=== PATIENT | male | born 1995 | race Caucasian/White ===

== ENCOUNTER 2018-10-30 01:08 | Emergency (ER) | payer OTHER ==
[2018-10-30 01:39] VITALS: BP 126/72; PULSE 91; TEMP 99; BMI 22.8
[2018-10-30] MEDS ORDERED: ACETAMINOPHEN 325 MG TABLET (FP) PO ONE (01:46)
--- NOTE | 2018-10-30 01:46 | PDOC ---
History of Present Illness - General Chief Complaint: Sore Throat Stated Complaint: SORE THROAT Time Seen by Provider: 10/30/18 01:34 History Source: Patient - History of Present Illness Initial Comments: 10/30/18 02:12 22-year-old male complaining of sore throat and difficulty swallowing for the last 3 days patient reports low-grade fevers at home. No past medical history Past History - Past Medical History Allergies/Adverse Reactions: Allergies Allergy/AdvReac Type Severity Reaction Status Date / Time No Known Allergies Allergy Verified 10/30/18 01:39 Home Medications: Ambulatory Orders Omeprazole [Prilosec] 40 mg PO DAILY 02/19/16 GI Disorders: Yes (gerd) - Immunization History Immunization Up to Date: Yes - Suicide/Smoking/Psychosocial Hx Smoking Status: No Smoking History: Never smoked Have you smoked in the past 12 months: No Number of Cigarettes Smoked Daily: 0 Information on smoking cessation initiated: No Hx Alcohol Use: No Drug/Substance Use Hx: No Review of Systems - Review of Systems Able to Perform ROS?: Yes Is the patient limited [place] proficient: No Constitutional: Yes: Fever HEENTM: Yes: Throat Pain. No: Symptoms Reported, See HPI, Eye Pain, Blurred Vision, Tearing, Recent change in vision, Double Vision, Cataracts, Ear Pain, Ocular Prothesis, Ear Discharge, Nose Pain, Nose Congestion, Tinnitus, Nose Bleeding, Hearing Loss, Throat Swelling, Mouth Pain, Dental Problems, Difficulty Swallowing, Mouth Swelling, Other Respiratory: No: Symptoms reported, See HPI, Cough, Orthopnea, Shortness of Breath, SOB with Exertion, SOB at Rest, Stridor, Wheezing, Productive cough, Hemoptysis, Other Cardiac (ROS): No: Symptoms Reported, See HPI, Chest Pain, Edema, Irregular Heart Rate, Lightheadedness, Palpitations, Syncope, Chest Tightness, Other ABD/GI: No: Symptoms Reported, See HPI, Abdominal Distended, Abd. Pain w/ defecation, Blood Streaked Bowels, Constipated, Diarrhea, Difficulty Swallowing , Nausea, Poor Appetite, Poor Fluid Intake, Rectal Bleeding, Vomiting, Indigestion, Abdominal cramping, Tarry Stools, Other *Physical Exam - Vital Signs Last Vital Signs Temp Pulse Resp BP Pulse Ox 99 F 91 H 19 126/72 100 10/30/18 01:08 10/30/18 01:08 10/30/18 01:08 10/30/18 01:08 10/30/18 01:08 - Physical Exam General Appearance: Yes: Appropriately Dressed HEENT: positive: Tonsillar Exudate, Tonsillar Erythema Neck: positive: Lymphadenopathy (R), Lymphadenopathy (L) Respiratory/Chest: positive: Lungs Clear, Normal Breath Sounds Cardiovascular: positive: Regular Rhythm, Regular Rate Gastrointestinal/Abdominal: positive: Normal Bowel Sounds, Soft Musculoskeletal: positive: Normal Inspection Extremity: positive: Normal Capillary Refill, Normal Inspection, Normal Range of Motion Integumentary: positive: Normal Color, Dry, Warm Neurologic: positive: Fully Oriented, Alert, Normal Mood/Affect Moderate Sedation - Procedure Monitoring Vital Signs: Procedure Monitoring Vital Signs Temperature 99 F 10/30/18 01:08 Pulse Rate 91 H 10/30/18 01:08 Respiratory Rate 19 10/30/18 01:08 Blood Pressure 126/72 10/30/18 01:08 O2 Sat by Pulse Oximetry (%) 100 10/30/18 01:08 Medical Decision Making - Medical Decision Making 10/30/18 02:23 A: strep pharyngitis P: rapid strep *DC/Admit/Observation/Transfer - Discharge Dispostion Disposition: HOME Condition at time of disposition: Improved - Referrals Referrals: Nito Wong [Primary Care Provider] - - Patient Instructions Printed Discharge Instructions: Strep Throat Additional Instructions: gargle with warm salty water you may take ibuprofen every 6 hours for pain - Post Discharge Activity Forms/Work/School Notes: Back to Work
--- NOTE | 2018-10-30 01:46 | PDOC ---
*Physical Exam - Vital Signs Last Vital Signs Temp Pulse Resp BP Pulse Ox 99 F 91 H 19 126/72 100 10/30/18 01:08 10/30/18 01:08 10/30/18 01:08 10/30/18 01:08 10/30/18 01:08 Medical Decision Making - Medical Decision Making 10/30/18 01:46 Patient seen by the advanced practice provider under my direct supervision. Ancillary testing reviewed as necessary. I agree with plan as outlined by the advanced practice provider. *DC/Admit/Observation/Transfer Diagnosis at time of Disposition: Sore throat - Discharge Dispostion Disposition: HOME Condition at time of disposition: Improved - Referrals Referrals: Nito Wong [Primary Care Provider] - - Patient Instructions Printed Discharge Instructions: Strep Throat Additional Instructions: gargle with warm salty water you may take ibuprofen every 6 hours for pain - Post Discharge Activity Forms/Work/School Notes: Back to Work
[2018-10-30] MEDS ORDERED: ACETAMINOPHEN 325 MG TABLET (FP) ONE (01:56)
[2018-10-30] MEDS ORDERED: DEXAMETHASONE SOD PHOSPHATE 10 MG/1 ML VIAL ONE (01:57)
[2018-10-30] MEDS ORDERED: DEXAMETHASONE 4 MG TABLET (FP) PO ONE (02:00)
[2018-10-30] MEDS ORDERED: PENICILLIN G BENZATHINE 1,200,000 UNIT/2 ML PFS IM ONE ×2 (02:23→03:58)
== END 2018-10-30 04:23 | disposition home or self-care (01) ==
LOC: JER 01:08
DX: J02.0 Streptococcal pharyngitis (principal); B95.0 Streptococcus, group A, as the cause of diseases classified elsewhere
CPT/HCPCS: 87880; 96372; 99281-25

== ENCOUNTER 2019-03-21 01:25 | Emergency (ER) | payer OTHER | END 2019-03-21 03:56 | disposition home or self-care (01) | LOC: JER 01:25 ==

== ENCOUNTER 2019-11-30 01:34 | Emergency (ER) | payer OTHER ==
[2019-11-30 01:46] VITALS: BP 127/68; PULSE 98; TEMP 99.1; BMI 22.0
[2019-11-30] MEDS ORDERED: IBUPROFEN 600 MG TABLET (FP) PO ONE ×2 (03:08→03:14)
--- NOTE | 2019-11-30 03:10 | PDOC ---
History of Present Illness - General Chief Complaint: Sore Throat Stated Complaint: SORE THROAT - History of Present Illness Initial Comments: The pt is a 24M w/ a history of recurrent tonsilitis who presents for evaluation of 4 days of sore throat. He reports painful swallowing and intermittent nonproductive cough. He denies fevers, rash, trouble breathing. He has not tried taking anything for his symptoms. He has an appointment with his ENT this coming Monday. 11/30/19 03:09 Past History - Past Medical History Allergies/Adverse Reactions: Allergies Allergy/AdvReac Type Severity Reaction Status Date / Time No Known Allergies Allergy Verified 11/30/19 01:43 Home Medications: Ambulatory Orders Omeprazole [Prilosec] 40 mg PO DAILY 02/19/16 Ibuprofen 600 mg PO QID PRN #20 tablet 03/21/19 Cephalexin Monohydrate [Keflex -] 500 mg PO BID #20 capsule 11/30/19 COPD: No GI Disorders: Yes (gerd) - Immunization History Immunization Up to Date: Yes - Psycho Social/Smoking Cessation Hx Smoking Status: No Smoking History: Never smoked Have you smoked in the past 12 months: No Number of Cigarettes Smoked Daily: 0 Information on smoking cessation initiated: No Hx Alcohol Use: No Drug/Substance Use Hx: No Review of Systems - Review of Systems Able to Perform ROS?: Yes Comments:: GENERAL/CONSTITUTIONAL: No fever or chills. No weakness HEAD, EYES, EARS, NOSE AND THROAT: No change in vision. No change in hearing. + sore throat CARDIOVASCULAR: No chest pain or shortness of breath RESPIRATORY: Denies hemoptysis GASTROINTESTINAL: No nausea, vomiting, diarrhea or constipation GENITOURINARY: No dysuria, frequency, or change in urination MUSCULOSKELETAL: No joint or muscle swelling or pain. No neck or back pain SKIN: No rash NEUROLOGIC: No headache, vertigo, loss of consciousness, or change in strength/ sensation ENDOCRINE: No increased thirst. No abnormal weight change HEMATOLOGIC/LYMPHATIC: No anemia, easy bleeding, or history of blood clots ALLERGIC/IMMUNOLOGIC: No hives or skin allergy Is the patient limited German proficient: No *Physical Exam - Vital Signs Last Vital Signs Temp Pulse Resp BP Pulse Ox 99.1 F 98 H 20 127/68 98 11/30/19 01:44 11/30/19 01:44 11/30/19 01:44 11/30/19 01:44 11/30/19 01:44 - Physical Exam GENERAL: Awake, alert, and oriented to person/place/time, in no acute distress HEAD: No signs of trauma, normocephalic, atraumatic EYES: PERRLA, EOMI, sclera anicteric, conjunctiva clear ENT: Hearing grossly normal, nares patent, oropharynx clear with tonsilar swelling and exudate. No uvular deviation. Moist mucosa LUNGS: No distress, speaks in full sentences, clear to auscultation bilaterally HEART: Regular rate and rhythm, normal S1 and S2, no murmurs appreciated, peripheral pulses normal and equal bilaterally ABDOMEN: Soft, nontender, normoactive bowel sounds. No guarding, no rebound EXTREMITIES: Normal inspection, Normal range of motion, no edema. No clubbing or cyanosis NEUROLOGICAL: Cranial nerves II through XII grossly intact. Normal speech, normal gait, no focal sensorimotor deficits SKIN: Warm, Dry Medical Decision Making - Medical Decision Making The pt is a 24M w/ a history of recurrent tonsilitis who presents for evaluation of 4 days of sore throat ED Course Rapid strep neg Ibuprofen for symptomatic relief Rx for Keflex sent to pt's pharmacy based on history and physical Pt w/ ENT f/u Monday Plan for D/C w/ PCP f/u Discharge instructions and return precautions given Patient in agreement and verbalized understanding Dispo: Home 11/30/19 04:25 Discharge - Discharge Information Problems reviewed: Yes Clinical Impression/Diagnosis: Sore throat, Acute recurrent tonsillitis Condition: Stable Disposition: HOME - Admission No - Additional Discharge Information Prescriptions: Cephalexin Monohydrate [Keflex -] 500 mg PO BID #20 capsule - Follow up/Referral Referrals: Gabriel Torres MD [Primary Care Provider] - - Patient Discharge Instructions Patient Printed Discharge Instructions: DI for Pharyngitis/Tonsillopharyngitis -- Adult Additional Instructions: You were seen in the Emergency Department for evaluation of sore throat. Your rapid strep was negative. Because of your history, a prescription for Keflex was sent to your pharmacy. Take twice a day for 10 days. Review the handout provided at discharge. Maintain your follow up with ENT on Monday. For pain/fever you may take Tylenol 650mg every 6 hours and Ibuprofen 600mg every 6-8 hours, alternating them each time. Return to the Emergency Department if you develop fevers, chest pain, trouble breathing, difficulty talking, difficulty swallowing, worsening symptoms, or any new/concerning symptoms. - Post Discharge Activity Work/Back to School Note: Back to Work
--- NOTE | 2019-11-30 03:26 | PDOC ---
Attending Attestation - Resident Resident Name: Antonio Machado - ED Attending Attestation I have performed the following: I have examined & evaluated the patient, The case was reviewed & discussed with the resident, I agree w/resident's findings & plan - HPI HPI: 11/30/19 04:21 Pt has sore throat; sates that he gets recurrent strep throat - Physicial Exam PE: 12/01/19 05:03 Agree with resident exam Pt has phryngeal exudate and he has redness bilaterally - Medical Decision Making 11/30/19 04:21 Odynophagia. 12/01/19 05:04 Pt will be treated clinically for strep throat
== END 2019-11-30 04:59 | disposition home or self-care (01) ==
LOC: JER 01:34
DX: J03.81 Acute recurrent tonsillitis due to other specified organisms (principal)
CPT/HCPCS: 87070; 87077; 87880; 99283-25